=== PATIENT | female | born 1930 | race Caucasian/White ===

== ENCOUNTER → 2018-05-25 | Outpatient (CLI) | payer MEDICARE ==
[~2018-05-25] MED LIST: ASPI325 PO; ATOR10; Ativan0.5 MG PO; CALCNI; CLARITIN10 MG PO; CYCL10 PO; Colace100 MG PO; Cyclobenzaprine5 MG PO; DOCU100 PO; ENOX40I SC; FURO40 PO; HYDACE5 PO; Klor-Con 1010 MEQ PO; LACT10SY PO; LAVAP17G PO; LIDO5TP TOP; LORA.5 PO; LORA1 PO; MEAL REPLACEMENT; METOPROLOL TA37.5 MG PO; METPRE4DP PO; MIRT30 PO; Norco 5-325 Ta1 EACH PO; Norco 7.5-3251 EACH PO; OXYC10ER PO; PANT40 PO; RISE35; RISE35 PO; RISE5; SENN187 PO; Vitamin D2000 UNIT PO
[2018-05-25 17:31] LABS: U Amphetamine Screen Not Detected; U Barbituate Screen Not Detected; U Benzodiazapine Screen Not Detected; U Buprenorphine Screen Not Detected; U Cannabinoids Screen Not Detected; U Cocaine Screen Not Detected; U Methadone Screen DETECTED; U Methamphetamine Screen Not Detected; U Opiates Screen Not Detected; U Oxycodone Screen Not Detected; U Phencyclidine Screen Not Detected; U Propoxyphene Screen Not Detected
== END | disposition home or self-care (01) ==
LOC: LAB SHORT 16:55 → LAB 16:55
PROVIDERS: Internal Medicine Hematology & Oncology
DX: Z51.81 Encounter for therapeutic drug level monitoring (principal); Z79.899 Other long term (current) drug therapy

== ENCOUNTER → 2018-12-07 | Outpatient (CLI) | payer MEDICARE ==
[2018-12-07 18:17] LABS: U Amphetamine Screen Not Detected; U Barbituate Screen Not Detected; U Benzodiazapine Screen DETECTED; U Buprenorphine Screen Not Detected; U Cannabinoids Screen Not Detected; U Cocaine Screen Not Detected; U Methadone Screen Not Detected; U Methamphetamine Screen Not Detected; U Opiates Screen DETECTED; U Oxycodone Screen Not Detected; U Phencyclidine Screen Not Detected; U Propoxyphene Screen Not Detected
== END | disposition home or self-care (01) ==
LOC: LAB SHORT 14:37 → LAB 14:37
PROVIDERS: Internal Medicine Hematology & Oncology
DX: Z51.81 Encounter for therapeutic drug level monitoring (principal); Z79.899 Other long term (current) drug therapy
CPT/HCPCS: G0480